=== PATIENT | female | born 1930 | race Caucasian/White ===

== ENCOUNTER → 2016-05-16 | Outpatient (CLI) | payer OTHER, MEDICARE ==
[~2016-05-16] MED LIST: AZITHROMYCIN 2250 MG; BROVANA15 MCG/2 M INH; CALCIUM 500 +1 EAC5 PO; CALCIUM 600 +1 EAC3 PO; CALCIUM 600 MG1 EAC3 PO; CENTRUM SILVER1 EAC3 PO; CENTRUM SILVER1 EAC4 PO; CRESTOR10 MG PO; DOXYCYCLINE 10100 MG PO; ENOXAPARIN40 MG/0.1 SUBQ; EVISTA PO; INCRUSE ELLI62.5 MCG IH; IPRAT-ALBUT 0.5-3 ML INH; LASIX 40 MG TAB40 M1 PO; LEVAQUIN 500 M500 M1 PO; LEVAQUIN 500 M500 M2 PO; LIPITOR 20 MG T20 M1 PO; MUCINEX TA600 MG/TA1 PO; PREDNISONE 20 M20 M1 PO; PREDNISONE 20 M20 MG PO; PROAIR HFA8.5 GM INH; PULMICORT0.5 MG/21 INH; SPIRIVA INH; VITAMIN E400 UNIT PO
== END ==
LOC: RAD 11:24
DX: R06.02 Shortness of breath (principal); J44.9 Chronic obstructive pulmonary disease, unspecified; R06.00 Dyspnea, unspecified

== ENCOUNTER → 2017-01-11 | Outpatient (CLI) | payer OTHER, MEDICARE | LOC: CAT 09:12 | DX: J44.9 Chronic obstructive pulmonary disease, unspecified (principal); R91.1 Solitary pulmonary nodule ==

== ENCOUNTER → 2017-01-19 | Outpatient (CLI) | payer OTHER, MEDICARE | LOC: PET 09:01 | DX: R91.8 Other nonspecific abnormal finding of lung field (principal) ==

== ENCOUNTER → 2017-01-26 | Outpatient (CLI) | payer OTHER, MEDICARE ==
[~2017-01-26] MED LIST changes: +ASPIR 8181 MG PO; +CALCIUM 600 +1 EACH PO; +LASIX 20 MG TAB20 MG PO; +OXYGEN NASAL; +PULMICORT0.25 MG/3 INH; +VENTOLIN HFA 1818 GM INH; +ZPAK PO
== END ==
LOC: RAD 12:10
DX: J18.9 Pneumonia, unspecified organism (principal); J44.9 Chronic obstructive pulmonary disease, unspecified

== ENCOUNTER → 2017-06-19 | Outpatient (CLI) | payer OTHER, MEDICARE ==
[~2017-06-19] MED LIST changes: +CEFUROXIME500 MG PO
== END ==
LOC: CAT 08:33
DX: J43.9 Emphysema, unspecified (principal); R91.1 Solitary pulmonary nodule

== ENCOUNTER → 2017-12-11 | Outpatient (CLI) | payer OTHER, MEDICARE ==
[~2017-12-11] MED LIST changes: -CEFUROXIME500 MG PO
== END ==
LOC: CAT 09:08 → EDSTATUS 14:24
DX: R91.1 Solitary pulmonary nodule (principal); E78.5 Hyperlipidemia, unspecified; J44.9 Chronic obstructive pulmonary disease, unspecified; M81.0 Age-related osteoporosis without current pathological fracture

== ENCOUNTER 2018-01-26 20:37 | Inpatient (IN) | payer OTHER, MEDICARE ==
[~2018-01-26] VITALS: Ht 157.5 cm; Wt 69.1 kg
--- NOTE | ~2018-01-26 | 2DMMODE ---
[facility] [place] [address] 2 D/M-MODE ECHOCARDIOGRAM Name: CHRISTOFER BEARD Room #: 455-P ADM IN M.R.#: [id number] Admission: 01/26/18 Attend Phys: Fadia Lion MD Discharge: Date of : 30 Date of Service: 01/28/18 1419 Report #: [id number] THIS REPORT FOR: //name// APPROVED REPORT Study performed: 01/28/2018 09:09:17 EXAM: Comprehensive 2D, Doppler, and color-flow Echocardiogram Patient Location: Bedside Room #: [facility] Status: routine BSA: 1.70 HR: 101 bpm BP: 128/65 mmHg Rhythm: NSR Other Information Study Quality: Adequate Risk Factors: Cardiac Risk Factors: SOA 2D Dimensions IVC: 22.00 mm Tricuspid Valve TR Peak Rip.: 3.31 m/s RAP Estimate: 10.00 mmHg TR Peak Gr.: 43.70 mmHg PA Pressure: 54.00 mmHg Left Ventricle The left ventricle is normal size. Left ventricular systolic function is normal. LVEF is 55-60%. Right Ventricle The right ventricle is normal size. Atria The left atrium size is normal. The right atrium size is normal. Aortic Valve The aortic valve is normal in structure. No aortic regurgitation is present. [address] [address] [place] [address] 2 D/M-MODE ECHOCARDIOGRAM Name: CHRISTOFER BEARDEN Room #: 455-P ADM IN M.R.#: [id number] Admission: 01/26/18 Attend Phys: Fadia Lion MD Discharge: Date of : 30 Date of Service: 01/28/18 1419 Report #: [id number] Mitral Valve The mitral valve is normal in structure. There is no mitral valve regurgitation noted. Tricuspid Valve The tricuspid valve is normal in structure. Moderate tricuspid regurgitation. Estimated PAP of 54 mmHg. Pulmonic Valve Pulmonic valve is not well visualized. There is no pulmonic valvular regurgitation noted. Great Vessels IVC is dilated and collapses >50% with inspiration. Pericardium There is no pericardial effusion. <Conclusion> The left ventricle is normal size. LVEF is 55-60%. The aortic valve is normal in structure. The mitral valve is normal in structure. The tricuspid valve is normal in structure. Moderate tricuspid regurgitation. Estimated PAP of 54 mmHg. Pulmonic valve is not well visualized. There is no pericardial effusion. <ELECTRONICALLY SIGNED> By: Evert Ghosh MD 01/28/18 1419 1419 1419 Evert Ghosh MD /INF
--- NOTE | ~2018-01-26 | EKG ---
[address] [address] ELECTROCARDIOGRAM REPORT Name: CHRISTOFER BEARD Room #: 455-P ADM IN M.R.#: [id number] Admission: 01/26/18 Attend Phys: Fadia Lion MD Discharge: Date of : 30 Report #: [id number] THIS REPORT FOR: //name// [facility] ED Test Date: 2018-01-26 Test Time: 20:52:39 Pat Name: CHRISTOFER BEARD Department: Room: [facility] Gender: F Bed Spring Maker: JEFF : 1930 Requested By: Jorden Foy Order Number: [id number] MD: Renny Benitez Measurements Intervals [place] Rate: 84 P: 82 GA: 142 QRS: -22 QRSD: 80 T: 45 QT: 360 QTc: 426 Interpretive Statements Sinus rhythm Atrial premature complex Borderline left axis deviation Abnormal R-wave progression, early transition Compared to ECG 07/11/2016 18:37:14 Atrial premature complex(es) now present Electronically Signed On 01-28-2018 17:34:27 CDT by Renny Benitez [email or web address] <ELECTRONICALLY SIGNED> By: Renny Benitez MD 01/28/18 1734 51 51 Renny Benitez MD /EPI
--- NOTE | ~2018-01-26 | HC ---
[facility] [place] [address] CONSULTATION Name: KISHACHRISTOFER CURTISLEEN Room #: 455-P [facility] IN M.R.#: [id number] Admission: 01/26/18 Attend Phys: Fadia Lion MD Discharge: 01/31/18 Date of : 30 Report #: [id number] THIS REPORT FOR: //name// CC: Lei Cevallos PRIMARY PHYSICIAN: Dr. Gabriel Cevallos. REFERRAL PHYSICIAN: Dr. Hoff. REASON FOR REFERRAL: Dyspnea. HISTORY OF PRESENT ILLNESS: The patient is an 87-year-old white female who presents to the Emergency Room with progressive dyspnea. A pulmonary consultation was requested. The patient is known to the pulmonary service. Used to follow longitudinally by Dr. Killian and Dr. Vanegas. She was last seen in the office on 12/27/2017. She has been followed for COPD along with a history of lung cancer and had lung nodules. Review of the records showed that the patient has had a CT chest in the past showing irregular spiculated nodule seen in the left upper lobe, a 7-mm noncalcified nodule in the right upper lobe. The left upper lobe infiltrates felt to be inflammatory. The left upper lobe nodule, unchanged, felt to be benign, but was being followed with serial chest CTs. Baseline spirometry showed FEV1 of 0.82 liter or 55% predicted. FVC measured 1.57 liters, 70% predicted, FEV1/FVC ratio 52% predicted. She was in her usual state of health until for the last few days, she has noticed increasing dyspnea, bronchospasm along with lack of energy. Otherwise, she denies any sore throat, febrile illness. She is also oxygen dependent since 2013. A previous echocardiogram in 2016 was grossly unremarkable with ejection fraction of 55%-60%. PAST MEDICAL HISTORY: Notable for COPD, severe impairment, oxygen dependent at 3 liters of O2, lung cancer 2004, pathologic diagnosis showed neuroendocrine tumor, status post left lower lobe lobectomy, hypertension, dyslipidemia, bilateral cataract surgery. PAST SURGICAL HISTORY: As mentioned above. She has also had appendectomy, cholecystectomy. She has had a partial oophorectomy. ALLERGIES: TO SULFASALAZINE, WHICH CAUSED RASH. SULFA DRUGS, REACTIONS UNSPECIFIED. [address] [address] CONSULTATION Name: CHRISTOFER BEARD FELICITA Room #: 455-P [facility] IN M.R.#: [id number] Admission: 01/26/18 Attend Phys: Fadia Lion MD Discharge: 01/31/18 Date of : 30 Report #: [id number] CURRENT MEDICATIONS: Include Proventil 2 puffs p.r.n., Brovana nebulized b.i.d., Pulmicort nebulized b.i.d., aspirin, calcium supplements, Lasix, multivitamins, Evista, Crestor. FAMILY HISTORY: Notable for heart disease in the mother. Father had a cancer of type unknown. SOCIAL HISTORY: She has smoked for about 40 years, quit in 2004. She drinks socially. REVIEW OF SYSTEMS: As mentioned above, otherwise 10-point system review is negative. PHYSICAL EXAMINATION: GENERAL: She is awake, alert, mildly distressed. VITAL SIGNS: Temperature is 97.6 degrees Fahrenheit, pulse is 60, respiratory rate is 16, blood pressure 94/77 mmHg and saturation 96%. HEENT: Unremarkable. NECK: Supple. CHEST: Breath sounds are fair with mild expiratory wheezes. CARDIOVASCULAR: Normal S1, S2. There are no murmurs or gallop. There is no JVD. There is no carotid bruit. Pulses are 2+/4+ bilaterally. ABDOMEN: Soft, nontender, no organomegaly or masses felt. GENITOURINARY: Deferred. RECTAL: Deferred. EXTREMITIES: There is no edema, cyanosis or clubbing. LABORATORY DATA: Portable chest x-ray shows mild nodular densities in the right lower lobe, chronic interstitial changes are seen in both lung goode, fibrotic changes are seen in the left upper lobe. CT chest from 12/11/[address] shows decrease in size in bilateral lung nodules, no new lung nodules, extensive upper lobe bullous changes. Electrolytes are normal except for creatinine of 1.3. This appears to be new. She had normal creatinine in the past. WBC 11,300, hemoglobin 11.6, platelets are normal. Albumin 2.4. IMPRESSION: 1. Chronic obstructive pulmonary disease exacerbation, severe impairment. 2. Mild increase in focal infiltrates, right lower lobe, question of pneumonia. 3. Acute on chronic hypoxic respiratory failure, she is on 3 liters of O2 at baseline. 4. Remote history of a neuroendocrine tumor status post left lower lobe lobectomy in 2014. 5. History of lung nodules, recent chest CT shows a decrease in size of the lung nodules. There is a stable noncalcified 7-mm nodule seen in the right upper lobe that he has been followed in the outpatient visit following a [facility] [address] [place] [address] CONSULTATION Name: CHRISTOFER BEARD Room #: 455-P DIS IN M.R.#: [id number] Admission: 01/26/18 Attend Phys: Fadia Lion MD Discharge: 01/31/18 Date of : 30 Report #: [id number] pulmonary office. 6. Severe protein-calorie malnutrition, current albumin 2.4. RECOMMENDATION: Agree with general medical treatment plans including corticosteroids, bronchodilators and broad spectrum antibiotics. DVT and GI prophylaxis will be addressed. Thank you for this consultation. <ELECTRONICALLY SIGNED> By: Stanislav Carter MD 02/04/18 1935 1429 1823 Stanislav Carter MD /nt
[2018-01-26 20:53] VITALS: BP 119/63
[2018-01-26 21:24] LABS: HEMATOCRIT 34.1 % (37.0-47.0); HEMOGLOBIN 11.6 gm/dL (12.0-15.0); MCH 30.4 pg (26.0-34.0); MCHC 33.9 g/dL (28.0-37.0); MCV 89.4 fL (80.0-100.0); PLATELET COUNT 162 thou/uL (150-400); RBC 3.82 mil/uL (4.20-5.00); WBC 11.3 thou/uL (4.0-11.0)
[2018-01-26 21:33] LABS: ANION GAP 5 mmol/L (7-16); BUN 34 mg/dL (7-18); CALCIUM 8.9 mg/dL (8.5-10.1); CHLORIDE 101 mmol/L (98-107); CO2 26 mmol/L (21-32); CREATININE 1.3 mg/dL (0.6-1.0); GLUCOSE 107 mg/dL (74-106); POTASSIUM 3.9 mmol/L (3.5-5.1); SODIUM 132 mmol/L (136-145)
[2018-01-26 21:41] LABS: ALBUMIN 2.4 g/dL (3.4-5.0); SGOT 30 U/L (15-37); SGPT 24 U/L (30-65); TOTAL BILIRUBIN 0.7 mg/dL (<0.1-1.0); TOTAL PROTEIN 6.6 g/dL (6.4-8.2); TROPONIN-I <0.06 ng/mL (<0.06)
[2018-01-26 22:01] LABS: ABSOLUTE NEUTROPHILS 10.1 thou/uL (1.4-8.2)
[2018-01-26 22:07] VITALS: BP 119/63
[2018-01-26 22:30] VITALS: BP 99/45
[2018-01-27 04:00] VITALS: BP 115/60
[2018-01-27 05:43] LABS: CALCIUM 8.5 mg/dL (8.5-10.1); CREATININE 1.3 mg/dL (0.6-1.0); POTASSIUM 3.6 mmol/L (3.5-5.1)
[2018-01-27 08:41] VITALS: BP 94/77
[2018-01-27 10:00] LABS: URINE BILIRUBIN NEGATIVE (Negative); URINE BLOOD 1+ (Negative); URINE CLARITY CLEAR; URINE COLOR YELLOW; URINE GLUCOSE-RANDOM* NEGATIVE (Negative); URINE KETONES NEGATIVE (Negative); URINE PROTEIN (DIPSTICK) NEGATIVE (Negative); URINE UROBILINOGEN 0.2 E.U./dl (0.2-1.0)
[2018-01-27 10:03] LABS: URINE LEUKOCYTES-REFLEX 1+ (Negative); URINE NITRITE-REFLEX POSITIVE (Negative)
[2018-01-27 10:13] LABS: CASTS None Seen /LPF (None Seen); CRYSTALS None Seen /LPF (None Seen); SQUAMOUS 0-3 Few /LPF (0-3); URINE RBC 0-2 Rare /HPF (0-2); URINE WBC-REFLEX >25 Many /HPF (0-5); WBC CLUMPS Few (None Seen)
[2018-01-27 16:35] VITALS: BP 107/59
[2018-01-27 19:39] VITALS: BP 116/57
[2018-01-28 04:03] VITALS: BP 113/60
[2018-01-28 04:49] LABS: ABSOLUTE NEUTROPHILS 9.3 thou/uL (1.4-8.2); BASOPHILS 0.2 % (0.0-2.0); HEMATOCRIT 32.9 % (37.0-47.0); HEMOGLOBIN 11.1 gm/dL (12.0-15.0); LYMPHOCYTES 1.9 % (24.0-44.0); MCH 30.3 pg (26.0-34.0); MCHC 33.6 g/dL (28.0-37.0); PLATELET COUNT 176 thou/uL (150-400); POLYS 93.9 % (36.0-66.0); RBC 3.65 mil/uL (4.20-5.00); RDW 14.1 % (10.5-14.5); WBC 9.9 thou/uL (4.0-11.0)
[2018-01-28 04:52] LABS: CALCIUM 9.3 mg/dL (8.5-10.1); CREATININE 1.2 mg/dL (0.6-1.0); POTASSIUM 3.2 mmol/L (3.5-5.1)
[2018-01-28 07:53] VITALS: BP 128/65
[2018-01-28 16:43] VITALS: BP 128/76
[2018-01-28 19:47] VITALS: BP 132/60
[2018-01-29 04:05] VITALS: BP 145/74
[2018-01-29 05:40] LABS: HEMATOCRIT 32.9 % (37.0-47.0); HEMOGLOBIN 11.3 gm/dL (12.0-15.0); MCH 30.7 pg (26.0-34.0); MCHC 34.3 g/dL (28.0-37.0); MCV 89.5 fL (80.0-100.0); RBC 3.68 mil/uL (4.20-5.00); RDW 13.9 % (10.5-14.5); WBC 10.7 thou/uL (4.0-11.0)
[2018-01-29 05:51] LABS: CREATININE 1.2 mg/dL (0.6-1.0)
[2018-01-29 08:00] VITALS: BP 120/74
[2018-01-29 15:48] VITALS: BP 118/66
[2018-01-29 19:43] VITALS: BP 124/64
[2018-01-29 23:07] LABS: ADENOVIRUS Negative (Negative); INFLUENZA A Negative (Negative); INFLUENZA B Negative (Negative); METAPNEUMOVIRUS Negative (Negative); PARAINFLUENZA 1 Negative (Negative); PARAINFLUENZA 2 Negative (Negative); PARAINFLUENZA 3 Negative (Negative); RHINOVIRUS Negative (Negative); RSV A Negative (Negative); RSV B Negative (Negative)
[2018-01-30 03:57] VITALS: BP 131/64
[2018-01-30 08:00] VITALS: BP 126/66
[2018-01-30 13:20] VITALS: BP 126/66
[2018-01-30 15:39] VITALS: BP 120/67
[2018-01-30 19:18] VITALS: BP 135/58
[2018-01-31 05:16] VITALS: BP 141/66
[2018-01-31 08:03] VITALS: BP 121/67
[2018-01-31] MEDS ORDERED: CEFUROXIME500 MG PO ×2 (10:00→11:14)
[2018-01-31] MEDS ORDERED: PREDNISONE 20 M20 M1 PO (10:01)
== END 2018-01-31 12:41 | disposition home health service (06) | DRG 177 ==
LOC: ER 20:37 → 4W 21:41 → EROBS 21:41 → 4W 22:21 → ENTRNSPT 01-31 12:28 → 4W 01-31 12:41
PROVIDERS: Emergency Medicine; Hospitalist; Internal Medicine; Nurse Practitioner Acute Care
DX: J15.6 Pneumonia due to other Gram-negative bacteria (principal); J96.21 Acute and chronic respiratory failure with hypoxia; E43 Unspecified severe protein-calorie malnutrition; N17.9 Acute kidney failure, unspecified; J44.1 Chronic obstructive pulmonary disease with (acute) exacerbation; J44.0 Chronic obstructive pulmonary disease with (acute) lower respiratory infection; N12 Tubulo-interstitial nephritis, not specified as acute or chronic; E78.5 Hyperlipidemia, unspecified; E87.70 Fluid overload, unspecified; M62.84 Sarcopenia; R91.1 Solitary pulmonary nodule; I10 Essential (primary) hypertension; B96.89 Other specified bacterial agents as the cause of diseases classified elsewhere; K59.00 Constipation, unspecified; B96.20 Unspecified Escherichia coli [E. coli] as the cause of diseases classified elsewhere; Z85.118 Personal history of other malignant neoplasm of bronchus and lung; Z90.49 Acquired absence of other specified parts of digestive tract; Z98.42 Cataract extraction status, left eye; Z98.41 Cataract extraction status, right eye; Z88.2 Allergy status to sulfonamides; Z87.891 Personal history of nicotine dependence; Z90.721 Acquired absence of ovaries, unilateral; Z68.27 Body mass index [BMI] 27.0-27.9, adult; Z82.49 Family history of ischemic heart disease and other diseases of the circulatory system; Z80.1 Family history of malignant neoplasm of trachea, bronchus and lung; Z80.42 Family history of malignant neoplasm of prostate; Z99.81 Dependence on supplemental oxygen; Z79.52 Long term (current) use of systemic steroids; Z79.899 Other long term (current) drug therapy
CPT/HCPCS: 10045

== ENCOUNTER → 2018-03-07 | Outpatient (CLI) | payer OTHER, MEDICARE ==
[~2018-03-07] MED LIST changes: +CEFUROXIME500 MG PO
== END ==
LOC: RAD 12:51
DX: J43.9 Emphysema, unspecified (principal); J98.4 Other disorders of lung; M47.814 Spondylosis without myelopathy or radiculopathy, thoracic region; M40.294 Other kyphosis, thoracic region

== ENCOUNTER → 2018-07-22 | Outpatient (CLI) | payer OTHER, MEDICARE | LOC: RAD 10:56 | DX: J44.1 Chronic obstructive pulmonary disease with (acute) exacerbation (principal); I70.0 Atherosclerosis of aorta ==

== ENCOUNTER → 2018-09-05 | Outpatient (CLI) | payer OTHER, MEDICARE | LOC: RAD 10:34 | DX: J43.2 Centrilobular emphysema (principal); R16.1 Splenomegaly, not elsewhere classified; Z88.2 Allergy status to sulfonamides ==

== ENCOUNTER → 2018-12-10 | Outpatient (CLI) | payer OTHER, MEDICARE | LOC: CAT 08:45 | DX: J43.2 Centrilobular emphysema (principal); I25.10 Atherosclerotic heart disease of native coronary artery without angina pectoris; I11.9 Hypertensive heart disease without heart failure; I70.0 Atherosclerosis of aorta; I28.1 Aneurysm of pulmonary artery; J98.4 Other disorders of lung; N28.1 Cyst of kidney, acquired; K86.89 Other specified diseases of pancreas; K86.1 Other chronic pancreatitis; Z90.49 Acquired absence of other specified parts of digestive tract; Z88.2 Allergy status to sulfonamides ==

== ENCOUNTER 2019-01-31 16:54 | Inpatient (IN) | payer OTHER, MEDICARE ==
[~2019-01-31] VITALS: Ht 157.5 cm; Wt 70.6 kg
[2019-01-31 17:13] VITALS: BP 143/62
[2019-01-31 18:29] LABS: BASOPHILS 0.4 % (0.0-2.0); EOSINOPHILS 2.2 % (0.0-3.0); HEMATOCRIT 38.7 % (37.0-47.0); HEMOGLOBIN 12.6 gm/dL (12.0-15.0); LYMPHOCYTES 23.7 % (24.0-44.0); MCH 29.7 pg (26.0-34.0); MCHC 32.5 g/dL (28.0-37.0); MCV 91.4 fL (80.0-100.0); MONOCYTES 7.4 % (1.0-8.0); PLATELET COUNT 234 thou/uL (150-400); POLYS 66.3 % (36.0-66.0); RBC 4.23 mil/uL (4.20-5.00); RDW 14.3 % (10.5-14.5); WBC 7.5 thou/uL (4.0-11.0)
[2019-01-31 18:38] LABS: CREATININE 0.9 mg/dL (0.6-1.0); POTASSIUM 3.7 mmol/L (3.5-5.1)
[2019-01-31 18:44] LABS: ALBUMIN 3.3 g/dL (3.4-5.0); DIRECT BILIRUBIN 0.1 mg/dL (<0.1-0.3); TOTAL BILIRUBIN 0.4 mg/dL (<0.1-1.0); TOTAL PROTEIN 6.8 g/dL (6.4-8.2)
[2019-01-31 19:23] LABS: URINE BILIRUBIN NEGATIVE (Negative); URINE BLOOD 1+ (Negative); URINE CLARITY SL CLOUDY; URINE COLOR YELLOW; URINE GLUCOSE-RANDOM* NEGATIVE (Negative); URINE KETONES TRACE (Negative); URINE LEUKOCYTES 2+ (Negative); URINE NITRITE POSITIVE (Negative); URINE PROTEIN (DIPSTICK) TRACE (Negative); URINE SPECIFIC GRAVITY 1.025 (1.005-1.035); URINE UROBILINOGEN 0.2 E.U./dl (0.2-1.0)
[2019-01-31 19:33] LABS: BACTERIA >30 Many /HPF (None Seen); SQUAMOUS 0-3 Few /LPF (0-3); URINE WBC >25 Many /HPF (0-5)
[2019-01-31 19:34] LABS: CASTS None Seen /LPF (None Seen); CRYSTALS None Seen /LPF (None Seen); URINE RBC 0-2 Rare /HPF (0-2)
[2019-01-31 20:07] VITALS: BP 126/48
[2019-01-31 20:31] VITALS: BP 126/48
[2019-01-31 21:05] VITALS: BP 153/60
[2019-02-01 04:48] VITALS: BP 103/41
--- NOTE | 2019-02-01 04:48 | NUR ---
PT ARRIVED FROM ED AT 2045HRS. PT AOX4 AND HAS A STEADY GAIT. PT WAS ORIENTED TO THE ROOM AND THE UNIT. PT WAS ABLE TO ANSWER ALL ADMISSION RELATED QUESTIONS AND SIGN CONSENTS. 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 ORDERS RECEIVED AND STARTED. PT ON 3L O2 VIA NC AT HOME. PT DENIES ANY PAIN OR [place]. PT STATES THAT SHE ALREADY FEELS BEETER. VSS AND NO S/S OF ACUTE DISTRESS. THE NIGHT PROGRESSED, PT WAS ABLE TO SLEEP PART OF THE SHIFT. PT IS PLEASANT AND COOPERATIVE. WILL CONTINUE TO MONITOR.
[2019-02-01 05:10] LABS: HEMATOCRIT 36.7 % (37.0-47.0); HEMOGLOBIN 12.2 gm/dL (12.0-15.0); MCH 30.4 pg (26.0-34.0); MCHC 33.3 g/dL (28.0-37.0); MCV 91.3 fL (80.0-100.0); RBC 4.02 mil/uL (4.20-5.00); RDW 14.1 % (10.5-14.5)
[2019-02-01 05:30] LABS: ALBUMIN 2.7 g/dL (3.4-5.0); CALCIUM 8.3 mg/dL (8.5-10.1); CREATININE 0.8 mg/dL (0.6-1.0); POTASSIUM 4.3 mmol/L (3.5-5.1); TOTAL BILIRUBIN 0.3 mg/dL (<0.1-1.0); TOTAL PROTEIN 6.2 g/dL (6.4-8.2)
[2019-02-01 08:12] VITALS: BP 119/78
--- NOTE | 2019-02-01 11:32 | EKG ---
[address] [address] ELECTROCARDIOGRAM REPORT Name: CHRISTOFER BEARD EILEEN Room #: 434-P ADM IN M.R.#: [id number] Admission: 01/31/19 Attend Phys: Alejandro Bustos MD Discharge: Date of : 30 Report #: [id number] THIS REPORT FOR: //name// [facility] ED Test Date: 2019-01-31 Test Time: 18:14:24 Pat Name: CHRISTOFER BEARD Department: Room: 434 Gender: F Field Support Engineer: [place] : 1930 Requested By: Raymundo Bustamante Order Number: [id number] MD: Renny Benitez Measurements Intervals [place] Rate: 67 P: 48 TN: 135 QRS: -18 QRSD: 80 T: 51 QT: 419 QTc: 443 Interpretive Statements Sinus rhythm Borderline left axis deviation Compared to ECG 01/26/2018 20:52:39 Atrial premature complex(es) no longer present Electronically Signed On 02-01-2019 11:32:08 CDT by Renny Benitez [email or web address] <ELECTRONICALLY SIGNED> By: Renny Benitez MD 02/01/19 1132 181 181 Renny Benitez MD /EPI
[2019-02-01 13:40] VITALS: BP 123/52
--- NOTE | 2019-02-01 20:05 | NUR ---
PATIENT ALERT AND ORIENTED WITH FAMILY CONSTANTLY AT BEDSIDE DURING THE DAY. PATIENT COOPERATIVE AND PLEASANT WITH POC. PATIENT UP TO BATHROOM WITH SBA WITH OCCASSIONAL WEAKNESS. URINE OUTPUT OF 400 ML AND BLADDER SCAN IMMEDIATELY FOLLOWING WITH 250 RESIDUAL. NO PAIN ISSUES.
[2019-02-01 20:23] VITALS: BP 115/43
--- NOTE | 2019-02-02 04:10 | NUR ---
ASSUMED CARE OF PT @1900. PT A&OX4. PT IS ON 3L OF 02 NC BASELINE. PT USES THE BSC WITH STANDBY ASSIST. PT URINATED 450ML OF URINE. A SPOT CHECK BLADDER SCAN SHOWED 478ML IN PT BLADDER, PT WAS ASKED TO TRY TO URINATE SOME MORE, AND PT HAD 200ML OUT THIS TIME. NO C/O OF PAIN. PT IS GETTING SOLUMEDROL AND NEB TX. V/S STABLE. NO S/S OF DISTRESS. FALL PREC IN PLACE. CALL LIGHT WITHIN REACH. WILL CONT TO MONITOR
[2019-02-02 07:40] VITALS: BP 121/53
[2019-02-02 16:05] VITALS: BP 132/45
--- NOTE | 2019-02-02 18:15 | NUR ---
ALER TO ORIENTED X4. DENIES PAIN. RESPIRATIONS NON LABORED WITH REST. UP WITH STAND BY ASSIST FOR TRANSFERS. SHE INDICATES SHE WILL LIKE TO DISCHARGE HOME IN AM. STATES SHE FEELS MUCH BETTER. WILL CONT WITH PLAN OF CARE.
[2019-02-02 19:06] VITALS: BP 136/61
[2019-02-03 07:19] VITALS: BP 137/78
[2019-02-03] MEDS ORDERED: PREDNISONE 20 M20 M1 PO (09:49)
[2019-02-03] MEDS ORDERED: AUGMENTIN 875-1 EACH PO (09:49)
--- NOTE | 2019-02-03 11:36 | NUR ---
Received awake on bed. Due medications given as prescribed. A+O. With O2 at 3lpm via nasal cannula. With SL at L UA- intact and flushing well. Vital signs stable. Pt keen to go home- a/w discharge orders from physician. Assisted in ADLs. On standby assist; Falls risk- falls bundle in place.
--- NOTE | 2019-02-03 15:22 | NUR ---
PT ADMITTED RELATED TO COPD, UTI. CM REVIEWED CHART AND SPOKE WITH CARE TEAM. CM MET WITH PT AT BEDSIDE THIS DAY PT IS A&OX 4 CM ROLE INTRODUCED. PT INDICATED THAT SHE JUST MOVED INTO INDEPENDENT LIVING APARTMENT AT [facility]. 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 PT INDICATED NO ASSISTIVE DEVICES. PT INDICATED SHE WEARS 3L O2 THROUGH [facility] AND THAT SHE PLANS TO RETURN HOME ONCE MEDICALLY STABLE. PT STATED HE HAD USED [facility] IN THE PAST AND SHE WAS AGREEABLE WITH REFERRAL BEING SENT TO [facility] FOR [facility] THIS TIME. THEY CAN ACCEPT. CARE TEAM INDICATED PT IS MEDICALLY STABLE TO DC HOME THIS DAY WITH PT, OT, NURSING HH SERVICES. NO OTHER CM INTERVENTION INDICATED. CASE CLOSED.
--- NOTE | 2019-02-03 15:26 | NUR ---
DP sent referral to [facility], Lata from [facility] called and said they can accept patient, but can't start her until Sunday. Dp spoke with our ARIE/Candie and she said that was fine, dp called Lata to say Sun. start is fine, dp will send discharge papers and call when they are in.
[2019-02-03 15:32] VITALS: BP 137/78
[2019-02-05 20:08] LABS: ADENOVIRUS Negative (Negative); INFLUENZA A Negative (Negative); INFLUENZA B Negative (Negative); METAPNEUMOVIRUS Negative (Negative); PARAINFLUENZA 1 Negative (Negative); PARAINFLUENZA 2 Negative (Negative); PARAINFLUENZA 3 Negative (Negative); RHINOVIRUS Negative (Negative); RSV A Negative (Negative); RSV B Negative (Negative)
== END 2019-02-03 17:35 | disposition home health service (06) | DRG 189 ==
LOC: ER 16:54 → 4S 19:54 → EROBS 19:54 → 4S 20:26 → 4W 02-03 11:12 → ENTRNSPT 02-03 16:03 → 4W 02-03 17:35
PROVIDERS: Nurse Practitioner; Pediatrics; ADMIT Hospitalist
DX: J96.21 Acute and chronic respiratory failure with hypoxia (principal); N39.0 Urinary tract infection, site not specified; I50.32 Chronic diastolic (congestive) heart failure; J44.1 Chronic obstructive pulmonary disease with (acute) exacerbation; E78.5 Hyperlipidemia, unspecified; I27.20 Pulmonary hypertension, unspecified; I11.0 Hypertensive heart disease with heart failure; Z90.2 Acquired absence of lung [part of]; Z85.118 Personal history of other malignant neoplasm of bronchus and lung; Z90.49 Acquired absence of other specified parts of digestive tract; Z98.42 Cataract extraction status, left eye; Z98.41 Cataract extraction status, right eye; Z79.899 Other long term (current) drug therapy; Z88.2 Allergy status to sulfonamides; Z87.891 Personal history of nicotine dependence; Z87.01 Personal history of pneumonia (recurrent); Z85.43 Personal history of malignant neoplasm of ovary; Z82.49 Family history of ischemic heart disease and other diseases of the circulatory system; Z80.1 Family history of malignant neoplasm of trachea, bronchus and lung; Z80.42 Family history of malignant neoplasm of prostate
CPT/HCPCS: 10195

== ENCOUNTER 2019-05-02 14:19 | Inpatient (IN) | payer OTHER, MEDICARE ==
[~2019-05-02] VITALS: Ht 160 cm; Wt 68.0 kg
[~2019-05-02 14:19] MED LIST changes: +AUGMENTIN 875-1 EACH PO
[2019-05-02 14:20] VITALS: BP 96/40
[2019-05-02 15:32] LABS: ABSOLUTE NEUTROPHILS 9.8 thou/uL (1.4-8.2); BASOPHILS 0.3 % (0.0-2.0); EOSINOPHILS 0.2 % (0.0-3.0); HEMATOCRIT 35.6 % (37.0-47.0); HEMOGLOBIN 11.7 gm/dL (12.0-15.0); LYMPHOCYTES 6.1 % (24.0-44.0); MCHC 32.7 g/dL (28.0-37.0); MCV 91.8 fL (80.0-100.0); MONOCYTES 7.8 % (1.0-8.0); PLATELET COUNT 203 thou/uL (150-400); POLYS 85.6 % (36.0-66.0); RBC 3.88 mil/uL (4.20-5.00); WBC 11.5 thou/uL (4.0-11.0)
[2019-05-02 15:38] LABS: CALCIUM 8.9 mg/dL (8.5-10.1); CREATININE 0.9 mg/dL (0.6-1.0); POTASSIUM 3.6 mmol/L (3.5-5.1)
[2019-05-02 15:46] LABS: ALBUMIN 2.9 g/dL (3.4-5.0); DIRECT BILIRUBIN 0.2 mg/dL (<0.1-0.2); TOTAL BILIRUBIN 0.8 mg/dL (<0.1-1.0); TOTAL PROTEIN 6.3 g/dL (6.4-8.2)
[2019-05-02 17:22] LABS: URINE BILIRUBIN NEGATIVE (Negative); URINE BLOOD 1+ (Negative); URINE CLARITY CLOUDY; URINE COLOR YELLOW; URINE GLUCOSE-RANDOM* NEGATIVE (Negative); URINE KETONES NEGATIVE (Negative); URINE PROTEIN (DIPSTICK) TRACE (Negative); URINE UROBILINOGEN 0.2 E.U./dl (0.2-1.0)
[2019-05-02 17:23] LABS: URINE LEUKOCYTES-REFLEX 3+ (Negative); URINE NITRITE-REFLEX POSITIVE (Negative)
[2019-05-02 17:27] LABS: SQUAMOUS >10 Many /LPF (0-3)
[2019-05-02 17:28] LABS: BACTERIA-REFLEX >30 Many /HPF (None Seen); CASTS None Seen /LPF (None Seen); CRYSTALS None Seen /LPF (None Seen); MUCUS 0-3 Light strn/LPF (None Seen); URINE WBC-REFLEX >25 Many /HPF (0-5)
[2019-05-02 17:30] LABS: URINE RBC 3-10 Few /HPF (0-2)
--- NOTE | 2019-05-02 18:42 | NUR ---
KYA BEARD (SON) - PLEASE CALL WHEN MOVED TO FLOOR [phone]
[2019-05-02 19:49] VITALS: BP 114/57
--- NOTE | 2019-05-02 20:00 | NUR ---
CALLED PT'S SON WITH ROOM NUMBER FOR PT.
[2019-05-02 20:52] VITALS: BP 120/51
[2019-05-02] MEDS ORDERED: ASPIR 8181 M1 PO (22:35)
[2019-05-02] MEDS ORDERED: KLOR-CON M2020 MEQ PO (22:37)
[2019-05-03 00:12] VITALS: BP 102/60
[2019-05-03 03:22] VITALS: BP 110/45
[2019-05-03 04:09] LABS: ALBUMIN 2.6 g/dL (3.4-5.0); CALCIUM 8.5 mg/dL (8.5-10.1); CREATININE 0.9 mg/dL (0.6-1.0); PHOSPHORUS 3.1 mg/dL (2.5-4.9); POTASSIUM 3.8 mmol/L (3.5-5.1); TOTAL BILIRUBIN 0.4 mg/dL (<0.1-1.0); TOTAL PROTEIN 6.2 g/dL (6.4-8.2)
[2019-05-03 04:21] LABS: BASOPHILS 0.1 % (0.0-2.0); HEMOGLOBIN 11.7 gm/dL (12.0-15.0); MCH 30.3 pg (26.0-34.0); MCHC 32.4 g/dL (28.0-37.0); MCV 93.3 fL (80.0-100.0); MONOCYTES 1.6 % (1.0-8.0); PLATELET COUNT 193 thou/uL (150-400); POLYS 95.3 % (36.0-66.0); RBC 3.86 mil/uL (4.20-5.00); RDW 14.1 % (10.5-14.5); WBC 12.5 thou/uL (4.0-11.0)
--- NOTE | 2019-05-03 04:26 | NUR ---
PT ARRIVED TO UNIT APPROX 2100; ADMISSION AND ASSESSMENT COMPLETED, CONSENTS SIGNED. PT A&Ox4, FALL PREC IN PLACE, O2 ON AT 3L. PT REPORTS GENERAL WEAKNESS AND FATIGUE WITH SOA THAT HAS LASTED ABOUT A WEEK; BECOMES VERY SOB WITH ANY ACTIVITY. ACCUCHECKS FOR STEROIDS. SKIN INTACT. DENIES PAIN OR NAUSEA. HAS BEEN SA TO SR W/PVC'S AND HR IN 70-80'S ON TELE. NO OTHER CONCERNS, WILL CONTINUE TO MONITOR.
[2019-05-03 07:46] VITALS: BP 116/47
[2019-05-03 15:46] VITALS: BP 99/45
--- NOTE | 2019-05-03 17:39 | NUR ---
PT ON 3L PER HOME SCHEDULE...LUNGS COARSE NONPRODUCTIVE...SWABBED FOR RSV TODAY PENDING...
[2019-05-03 19:03] VITALS: BP 111/51
[2019-05-04 03:40] VITALS: BP 114/53
[2019-05-04 05:35] LABS: HEMATOCRIT 35.1 % (37.0-47.0); HEMOGLOBIN 11.6 gm/dL (12.0-15.0); MCH 30.5 pg (26.0-34.0); MCV 92.2 fL (80.0-100.0); RBC 3.8 mil/uL (4.20-5.00); RDW 14.1 % (10.5-14.5); WBC 9.9 thou/uL (4.0-11.0)
[2019-05-04 05:52] LABS: CALCIUM 9.2 mg/dL (8.5-10.1); POTASSIUM 4.2 mmol/L (3.5-5.1)
--- NOTE | 2019-05-04 06:16 | NUR ---
ASSUMED CARE AT 1900. PT REPORTS SLIGHT IMPROVEMENT IN BREATHING, STILL HAS SOME WHEEZING ON THE LEFT WITH CRACKLES IN THE RIGHT BASE. REPORTS SHE STILL BECOMES SOB EASILY WITH ANY ACTIVITY. DENIES PAIN OR NAUSEA. CALLS APPROPRIATELY FOR ASSISTANCE TO BSC. NO OTHER CONCERNS, WILL CONTINUE TO MONITOR.
[2019-05-04 07:38] VITALS: BP 124/57
[2019-05-04 15:38] VITALS: BP 94/51
--- NOTE | 2019-05-04 19:25 | NUR ---
PT REPORTS FEELING 50% BETTER TODAY...HOPEFULLY D/C TOMORROW OR TUES...CONTINUES ON ANTIBIOTICS AND STEROIDS...
[2019-05-04 19:46] VITALS: BP 112/59
--- NOTE | 2019-05-04 23:22 | NUR ---
REPORT CALLED TO 4 WEST. PT TO MOVE TO ROOM 460. PT IS CONCERNED HOW SHE CAN TAKE HER LASIX AND GWT TO TO HER EXERCISE CLASSES AT THE LIVING FACILITY SHE LIVES AT. INCONTITENCE IS AN ISSUE. I TALKED TO HER ABOUT WEARING A PIOSE BRIEF AND ALWAYS WIPING FRONT TO BACK AND USING BABY WIPES. SHE IS AGREEABLE TO MOVING TO THE UNIT ON 4W WHICH IS [facility] TELE
[2019-05-04 23:40] VITALS: BP 124/62
--- NOTE | 2019-05-05 00:12 | NUR ---
PATIENT TRANSFERED FROM ROOM 355 VIA BED WITH NURSE AND ROCKET TEST FIRE WORKER AT 2330. ALERT AND ORIENTED X4. 02NC 3L. NO SOA NOTED. RESTING QUIETLY. WILL MONITOR. DENIES PAIN.
[2019-05-05 08:37] VITALS: BP 121/70
[2019-05-05 14:20] VITALS: BP 115/47
--- NOTE | 2019-05-05 15:06 | NUR ---
PT A&OX4, VSS, DENIES PAIN. PT ON 3L O2, LUNGS DIMINISHED, NON PRODUCTIVE LOOSE COOUGH. NO SIGNS OF DISTRESS. WILL CONTINUE TO MONITOR.
--- NOTE | 2019-05-05 17:26 | NUR ---
PT ADMITTED RELATED TO SOA. CM REVIEWED CHART AND SPOKE WITH CARE TEAM. CM MET WITH PT AT BEDSIDE THIS DAY. PT IS A&O X4. CM ROLE INTRODUCED. PT INDICATED [place]IV[place] IN [place] AT [facility]. 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 PT INDICATED FACILITY PROVIDES MEALS. 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 PT INDICATED SHE HAD BEEN TO [facility] IN THAT PAST AND HAD [facility]. PT INDICATED SHE HOPES TO BE ABLE TO RETURN HOME WITH HH IF POSSIBLE ONCE MEDICALLY STABLE. CM TO FOLLOW INDICATED WITH DC PLANNING.
[2019-05-05 20:27] VITALS: BP 114/50
--- NOTE | 2019-05-06 04:03 | NUR ---
PT CARE ASSUME WITH PT IN BED WATCHING TV AR 1900.PT IS A/O X4.PT IS UP WITH ASSIST.PT IS ON OXYGEN 3L /NC.PT IS ACCUCHECK ACHS.PT IV ACCESS ON RFA /SL.PT DENIED PAIN .PT DENIED N/V.WILL CONTINUE POC TILL EOS
[2019-05-06 08:42] VITALS: BP 129/62
--- NOTE | 2019-05-06 10:13 | NUR ---
DISCHARGE PLANNING. POSSIBLE DISCHARGE TODAY. HOME HEALTH RECOMMENDED. PATIENT REFERRAL FAXED TO [facility] PER REQUEST. CALL PLACED TO INTAKE TO NOTIFY. AWAITING RESPONSE. FOLLOWING.
[2019-05-06 14:46] VITALS: BP 143/78
--- NOTE | 2019-05-06 15:16 | NUR ---
IT IS ANTICPATED THAT PT WILL BE MEDICALLY STABLE TO DC HOME TO [facility] TOMORROW Sunday05/07/19. [facility]FERRAL SENT TO [facility]. ORDERS WILL NEED TO BE SENT TO FAX: . IF PT NEEDS [facility] HOME CALL [facility] AT .
--- NOTE | 2019-05-06 18:41 | NUR ---
PATIENT STATES SHE HAS SIGNIFICANTLY IMPROVED TODAY. STATES SHE FEELS LIKE SHE CAN GO HOME AND BE OK. CONT ON IV ABT AND NO ADVERSE EFFECTS NOTED. PLEASANT WITH CARE. WILL CONT WITH PLAN OF CARE.
[2019-05-06 19:20] VITALS: BP 125/74
--- NOTE | 2019-05-07 05:43 | NUR ---
Pt. rested quietly at intervals during the night when checked on during frequent rounds. She offers no c/o pain and no c/o shortness of air. Up to the bedside comode with assistance of one. Bed alarm is on.
[2019-05-07 07:40] VITALS: BP 141/70
[2019-05-07 15:10] LABS: ADENOVIRUS Negative (Negative); INFLUENZA A Negative (Negative); INFLUENZA B Negative (Negative); METAPNEUMOVIRUS Negative (Negative); PARAINFLUENZA 1 Negative (Negative); PARAINFLUENZA 2 Negative (Negative); PARAINFLUENZA 3 Negative (Negative); RHINOVIRUS Positive (Negative); RSV A Negative (Negative); RSV B Negative (Negative)
[2019-05-07 15:35] VITALS: BP 106/60
--- NOTE | 2019-05-07 19:35 | NUR ---
Assumed pt care this am, VS have been stable. No signs or verbalizations of distress have been noted. 3L of O2 via NC maintained , diet and medication well tolerated. POC followed.
[2019-05-07 20:00] VITALS: BP 116/55
--- NOTE | 2019-05-08 05:50 | NUR ---
Pt. rested quietly at intervals during the night when checked on during frequent rounds. She offers no c/o increased shortness of air and continues on O2 at 3 liters per nasal canula. Up to the bathroom with stand by assistance. Bed alarm is on.
[2019-05-08 07:45] VITALS: BP 127/62
[2019-05-08] MEDS ORDERED: RAYOS5 MG PO (12:27)
[2019-05-08 13:00] VITALS: BP 127/62
[2019-05-08 14:03] VITALS: BP 113/60
--- NOTE | 2019-05-08 14:06 | NUR ---
Assumed pt care this am, VS stable still on 3 L of O2 via NC. Pt stayed on her recliner for most of the day. Diet and medications are well tolerated. NO signs or verbalizatons of distress have been noted. POC followed, DC instructons given to the pt, prescriptions sent to the pharmacy. Awaiting son to pick py up. IV removed
--- NOTE | 2019-05-08 15:13 | NUR ---
CARE TEAM INDICATED THAT PT IS MEDICALLY STABLE TO DC HOME TO [facility] THIS DAY. PT IS TO HAVE [facility] FOR NURSING. ORDERS FAXED. PT'S FAMILY IS TO PROVIDE TRANSPORT HOME THIS AFTERNOON. NO OTHER CM INTERVENTION INDICATED. CASE CLOSED.
== END 2019-05-08 16:45 | disposition home health service (06) | DRG 871 ==
LOC: ER 14:19 → 4W 17:57 → EROBS 17:57 → 3W 21:01 → 4W 05-04 23:29 → ENTRNSPT 05-08 16:10 → 4W 05-08 16:45
PROVIDERS: Emergency Medicine; Internal Medicine Pulmonary Disease; ADMIT Internal Medicine
DX: A41.9 Sepsis, unspecified organism (principal); J96.21 Acute and chronic respiratory failure with hypoxia; J18.9 Pneumonia, unspecified organism; J44.1 Chronic obstructive pulmonary disease with (acute) exacerbation; N39.0 Urinary tract infection, site not specified; J44.0 Chronic obstructive pulmonary disease with (acute) lower respiratory infection; I25.10 Atherosclerotic heart disease of native coronary artery without angina pectoris; Z60.2 Problems related to living alone; B96.20 Unspecified Escherichia coli [E. coli] as the cause of diseases classified elsewhere; I10 Essential (primary) hypertension; E78.5 Hyperlipidemia, unspecified; Z90.49 Acquired absence of other specified parts of digestive tract; Z98.42 Cataract extraction status, left eye; Z98.41 Cataract extraction status, right eye; Z85.118 Personal history of other malignant neoplasm of bronchus and lung; Z88.2 Allergy status to sulfonamides; Z87.891 Personal history of nicotine dependence; Z82.49 Family history of ischemic heart disease and other diseases of the circulatory system; Z80.42 Family history of malignant neoplasm of prostate; Z99.81 Dependence on supplemental oxygen
CPT/HCPCS: 10040; 10045; 10879

== ENCOUNTER 2019-05-15 05:24 | Inpatient (IN) | payer OTHER, MEDICARE ==
[~2019-05-15] VITALS: Ht 160 cm; Wt 66.3 kg
[~2019-05-15 05:24] MED LIST changes: +ASPIR 8181 M1 PO; +KLOR-CON M2020 MEQ PO; +RAYOS5 MG PO
[2019-05-15 07:16] LABS: BE(vivo) 3.1 mmol/L (-2 to +3); PCO2 48.6 mmHg (35.0-45.0); PO2 108.8 mmHg (80.0-100.0); pH 7.394 (7.360-7.450); sO2 97.9 % (92.0-98.0)
[2019-05-15 08:28] LABS: ABSOLUTE NEUTROPHILS 8.2 thou/uL (1.4-8.2); BASOPHILS 0.2 % (0.0-2.0); HEMATOCRIT 36.7 % (37.0-47.0); HEMOGLOBIN 12.1 gm/dL (12.0-15.0); LYMPHOCYTES 4.8 % (24.0-44.0); MCH 30.1 pg (26.0-34.0); MCV 91.1 fL (80.0-100.0); MONOCYTES 6.6 % (1.0-8.0); PLATELET COUNT 191 thou/uL (150-400); POLYS 88.4 % (36.0-66.0); RBC 4.02 mil/uL (4.20-5.00); RDW 13.5 % (10.5-14.5); WBC 9.3 thou/uL (4.0-11.0)
[2019-05-15 08:43] LABS: ANION GAP 4 mmol/L (7-16); BUN 28 mg/dL (7-18); CALCIUM 8.7 mg/dL (8.5-10.1); CHLORIDE 100 mmol/L (98-107); CO2 35 mmol/L (21-32); GLUCOSE 95 mg/dL (74-106); POTASSIUM 3.3 mmol/L (3.5-5.1); SODIUM 139 mmol/L (136-145)
[2019-05-15 08:46] LABS: DIRECT BILIRUBIN 0.1 mg/dL (<0.1-0.2); MAGNESIUM 2.1 mg/dL (1.8-2.4); TOTAL BILIRUBIN 0.3 mg/dL (<0.1-1.0); TOTAL PROTEIN 6.1 g/dL (6.4-8.2)
[2019-05-15 08:53] LABS: TROPONIN-I <0.06 ng/mL (<0.06)
--- NOTE | 2019-05-15 08:58 | EKG ---
[address] [address] [facility] [place] [address] ELECTROCARDIOGRAM REPORT Name: CHRISTOFER BEARD Room #: [facility]#: [id number] Admission: 05/15/19 Attend Phys: Discharge: Date of : 30 Report #: [id number] THIS REPORT FOR: //name// [facility] ED Test Date: 2019-05-15 Test Time: 05:37:50 Pat Name: CHRISTOFER BEARD Department: Room: Gender: F Sales Leader: GABBY INGRAM : 1930 Requested By: Eliseo Victoria Order Number: [id number] MD: Suhail Anthony Measurements Intervals [place] Rate: 96 P: 84 GA: 142 QRS: -37 QRSD: 84 T: 58 QT: 362 QTc: 458 Interpretive Statements Sinus rhythm Left axis deviation Abnormal R-wave progression, early transition Compared to ECG 01/31/2019 18:14:24 No significant changes Electronically Signed On 05-15-2019 8:57:37 ANIMATED CARTOONS PAINTER by Suhail Anthony [email or web address] <ELECTRONICALLY SIGNED> By: Suhail Anthony MD, [facility] 05/15/19 0857 6 Suhail Anthony MD, [facility] /EPI
[2019-05-15 09:57] VITALS: BP 126/69
[2019-05-15 10:03] VITALS: BP 126/69
[2019-05-15 10:39] VITALS: BP 113/47
--- NOTE | 2019-05-15 13:10 | NUR ---
PT ARRIVED AT 1100 FROM THE ED. ALERT AND ORIENTED*4. DENIES PAIN. LS CONGESTED AND WHEEZING, ON 4L O2 WITH SATS >95%. SOA NOTED WITH EXERCION. VITALS STABLE. SKIN DRY AND INTACT. IV ON RIGHT AC REMAINS INTACT AND PATENT. PT UP WITH 1 ASSIST AND TOLERATED WELL. Q1H VISUAL CHECKS. CALL LIGHT WITHIN REACH. FALL PRECAUTIONS IN PLACE
[2019-05-15 15:41] VITALS: BP 114/64
--- NOTE | 2019-05-15 16:23 | NUR ---
PT ADMITTED RELATED TO COPD, O2 DEPENDENT, CAP. CM REVIEWED CHART AND SPOKE WITH CARE TEAM. CM FAMILIAR WITH PT FROM PREVIOUS ADMISSION. CM ATTEMPTED TO VISIT WITH PT THIS AFTERNOON BUT PT'S LIGHT WAS OFF AND SHE WAS SLEEPING. CM CALLED PT'S DTR FE NUÑEZ SHE INIDCATED CONFIMRED THAT PT RESIDES AT [facility] IN INDEPENDENT LIVING. 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 PT HAD DISHCARGED HOME LAST MONDAY 05/[address] [facility]. DTR INDICATED THAT PT HAD BEEN SENT HOME WITH A SCRIPT FOR PREDNISONE (REYOS) WHICH COST $3000.00 PT COULDN'T AFFORD TO FILL IT. DTR HAD CALLED HOSPITALIST OFFICE AND DONALD HAD WRITTEN NEW SCRIPT BUT PT HADN'T GOTTEN IT FILLED UNTIL JUST TWO DAYS AGO. DTR INDICATED THAT THEY WOULD HOPE THAT PT WOULD BE ABLE TO RETURN TO [place] APARTMENT ONCE MEDICALLY STABLE. CM TO FOLLOW INDICATED WITH DC PLANNING.
[2019-05-15 19:48] VITALS: BP 128/57
--- NOTE | 2019-05-16 02:03 | NUR ---
PATIENT AOX4 MAKES NEEDS KNOWN. PATIENT HAS WHEEZES AND COARSE THROUGHOUT THE CHEST. BREATHING TREATMENT GIVEN, O2 SAT WAS >95%. PATIENT ON 4L OXYGEN. PATIENT BLOOD SUGAR WAS 207, 4 UNIT OF HUMALOG GIVE. CALL LIGHT AND PERSONAL ITEM WITHIN REACH. FALL PRECAUTION IN PLACE. PATIENT IN BED ASLEEP AT THIS TIME BREATHING REGULAR AND UNLABOURED.
[2019-05-16 06:11] LABS: ABSOLUTE NEUTROPHILS 4.5 thou/uL (1.4-8.2); HEMOGLOBIN 11.6 gm/dL (12.0-15.0); LYMPHOCYTES 5.1 % (24.0-44.0); MCH 29.9 pg (26.0-34.0); MCHC 32.2 g/dL (28.0-37.0); MONOCYTES 4.1 % (1.0-8.0); PLATELET COUNT 187 thou/uL (150-400); POLYS 90.8 % (36.0-66.0); RBC 3.87 mil/uL (4.20-5.00)
[2019-05-16 06:25] LABS: CALCIUM 8.6 mg/dL (8.5-10.1); CREATININE 0.8 mg/dL (0.6-1.0); MAGNESIUM 2.4 mg/dL (1.8-2.4); POTASSIUM 4.2 mmol/L (3.5-5.1)
[2019-05-16 08:00] VITALS: BP 137/60
--- NOTE | 2019-05-16 13:03 | NUR ---
CARE TEAM INDICATED THAT PT WILL LIKELY BE HERE OVER THE WEEKEND. THERAPY INDICATED THAT PT WILL MOST LIKELY BE SAFE [place] WITH RESUMPTION OF HH SERVICES ONCE MEDICALLY STABLE. CM TO FOLLOW INDICATED WITH DC PLANNING.
--- NOTE | 2019-05-16 14:59 | NUR ---
DISCHARGE PLANNING. HOME HEALTH RECOMMENDED AT DISCHARGE. PATIENT IS CURRENT WITH [facility], VERIFIED WITH JOHN [facility]UL, INTAKE FOR [facility] TO FACILITATE ONCE RESUMPTION OF HH ORDERS RECEIVED. FOLLOWING.
[2019-05-16 15:00] VITALS: BP 139/42
[2019-05-16 15:03] VITALS: BP 137/60
--- NOTE | 2019-05-16 16:16 | NUR ---
Assumed patient care at 0715. Vital signs have been stable. Patient is up x's 1 assist. She is alert and oriented x's 4. Lung sounds continue as coarse with wheezes noted in all goode. She has been on Oxygen at 3.5 Liters per nasal cannula (as adjusted per RT). Blood sugar 106 at 0725, 171 at 1200 (she recieved 3 units of Lispro as ordered per Sliding Scale). New IV placed in left wrist, as IV in right anticubital space infiltrated. No adverse effects related to IV Antibiotic Therapy. POC followed. Will continue to monitor.
[2019-05-16 19:04] VITALS: BP 138/48
--- NOTE | 2019-05-17 00:48 | NUR ---
PATIENT AOX4 MAKES NEEDS KNOWN. PATIENT HAS WHEEZES AND LUNGS ARE COARSE. PATIENT DENIED COUGHING THIS SHIFT. PATIENT DENIED PAIN OR DISCOMFORT. NO SHORTNESS OF AIR OR DISTRESS NOTED THIS SHIFT. FALL PRECAUTION IN PLACE. CALL LIGHT AND PERSONAL ITEM WITHIN REACH.PATIENT IN BED ASLEEP AT THIS TIME BREATHING REGULAR AND UNLABOURED.
[2019-05-17 05:03] LABS: HEMATOCRIT 36.6 % (37.0-47.0); HEMOGLOBIN 11.7 gm/dL (12.0-15.0); MCH 29.7 pg (26.0-34.0); MCHC 31.9 g/dL (28.0-37.0); RBC 3.94 mil/uL (4.20-5.00); RDW 13.8 % (10.5-14.5); WBC 9.2 thou/uL (4.0-11.0)
[2019-05-17 05:17] LABS: CALCIUM 8.8 mg/dL (8.5-10.1); CREATININE 0.9 mg/dL (0.6-1.0); POTASSIUM 3.8 mmol/L (3.5-5.1)
[2019-05-17 07:23] VITALS: BP 141/64
--- NOTE | 2019-05-17 15:50 | NUR ---
Assumed patient care at 0715. Patient's vital signs continue as stable. Patient continues to have SOA upon exertion; lung sounds are coarse with wheezing noted in all goode. Patient had a small bowel movement today. Appetite is fair; she usually consumes about 50% of all meals. Patient is stand-by assist with transfers. She has voiced no complaints of pain. Will continue to monitor.
[2019-05-17 15:58] VITALS: BP 117/60
[2019-05-17 19:22] VITALS: BP 130/66
--- NOTE | 2019-05-18 04:16 | NUR ---
ASSUMED CARE AROUND 1914. AXOX4. STB ASSIST WHEN NEEDED. CALLS APPROPIRATELY FOR ASSISTANCE. NO S/S ACUTE DISTRESS NOTED OR REPORTED AT THIS TIME. WILL CONT TO MONITOR FOR ANY CHANGES IN CONDITION.
[2019-05-18 08:00] VITALS: BP 114/53
--- NOTE | 2019-05-18 10:30 | NUR ---
Received awake on bed. Due medications given as prescribed, able to swallow meds w/o difficulty. A+Ox4. With O2 at 3lpm via nasal cannula, still with audible wheezes and coarse breath sounds. On blood sugar monitoring with sliding scale insulin- pt on IV steroids. With SL at L wrist- on IV antibiotics. Assisted in ADLs, able to use bedside commode with minimum to standby assist. On regular diet- tolerating well; no nausea, no vomiting and no abdominal pain. On regular breathing treatments.
--- NOTE | 2019-05-18 17:53 | NUR ---
ASSUMED CARE OF PT AROUND 1500. PT WAS A TRANSFER FROM [facility]. PT IS ALERT AND ORIENTED TIMES FOUR. VSS. PT DENIES PAIN. PT UP WITH STAND BY ASSSIT. PT TOLERATES DINNER. WILL CONTINUE TO MONITOR.
[2019-05-18 19:23] VITALS: BP 122/67
[2019-05-19 05:39] LABS: ABSOLUTE NEUTROPHILS 6.8 thou/uL (1.4-8.2); BASOPHILS 0.1 % (0.0-2.0); HEMATOCRIT 38.5 % (37.0-47.0); HEMOGLOBIN 12.4 gm/dL (12.0-15.0); LYMPHOCYTES 7.5 % (24.0-44.0); MCH 29.6 pg (26.0-34.0); MCHC 32.2 g/dL (28.0-37.0); MONOCYTES 4.1 % (1.0-8.0); PLATELET COUNT 233 thou/uL (150-400); POLYS 88.3 % (36.0-66.0); RBC 4.19 mil/uL (4.20-5.00); RDW 13.7 % (10.5-14.5); WBC 7.7 thou/uL (4.0-11.0)
[2019-05-19 06:08] LABS: ALBUMIN 2.4 g/dL (3.4-5.0); CREATININE 0.9 mg/dL (0.6-1.0); MAGNESIUM 2.2 mg/dL (1.8-2.4); POTASSIUM 3.7 mmol/L (3.5-5.1); TOTAL BILIRUBIN 0.3 mg/dL (<0.1-1.0); TOTAL PROTEIN 6.1 g/dL (6.4-8.2)
[2019-05-19 07:13] VITALS: BP 149/77
--- NOTE | 2019-05-19 10:19 | NUR ---
ASSUMED CARE AT 0700, PT AOX4, NO C/O PAIN, VSS. PT IS UP TO BSC, AMBULATES WITH SB ASSIST. PT TOLERATES DIET WELL, CONT. 3L O2. PT HAS NON PRODUCTIVE COUGH, L WRIST IV-SL. CALL LIGHT/PERSONAL ITEMS IN REACH, HOURLY ROUNDS COMPLETED. WILL CONTINUE TO MONITOR PT.
--- NOTE | 2019-05-19 10:36 | NUR ---
SW reviewed chart and spoke with nursing and attending physician. Pt was transferred to [facility] from and is slowly progressing towards goals for discharge. SW met with pt at bedside to discuss discharge plan. Pt states she needs to see how her endurance is prior to discharge. Pt states she will need to be able to walk to and from the dining room, but could have meals delivered to her room if needed. Pt would like to go to [facility] if post-acute is needed. SW contacted liaison with [facility] to check bed availability. Pt is currently on service with [facility] . They can resume services. SW is following to assist as needed with discharge planning.
[2019-05-19 14:00] VITALS: BP 112/65
--- NOTE | 2019-05-20 06:20 | NUR ---
Assumed pt care at 1900. Pt is A/OX4,very pleasant. Hard of hearing,up ad naveen w/o problems. VSS. Denies pain on assessment. Continent of B&B. Does have a productive cough with white phlegm occasional dyspnea on exertion. Pt encouraged to call for help as needed for help. Resting quietly at this time with no distress noted,oxygen on @ 3L/NC. Will continue to monitor pt.
[2019-05-20 07:51] VITALS: BP 141/73
[2019-05-20] MEDS ORDERED: LEVAQUIN 500 M500 M2 PO (09:47)
[2019-05-20] MEDS ORDERED: IPRAT-ALBUT 0.5-3 ML INH (09:47)
[2019-05-20] MEDS ORDERED: ACIDOPHILUS1 EAC4 PO (09:48)
[2019-05-20] MEDS ORDERED: PANTOPRAZOLE SO40 M1 PO (09:48)
--- NOTE | 2019-05-20 09:59 | NUR ---
SW reviewed chart and spoke with nursing and attending physician. Pt is progressing towards goals for discharge. Discharge to [facility] is anticipated for tomorrow. SW discussed with [facility] liaison, who confirms they are able to accept pt tomorrow. [facility] is following to assist as needed with discharge planning.
[2019-05-20 18:51] VITALS: BP 129/82
--- NOTE | 2019-05-20 19:41 | NUR ---
ASSUMED CARE OF PATIENT AT 0715, PATIENT ALERT AND ORIENTED X 4. UP WITH SBA, BUT UP AD NESSA IN HER ROOM. O2 AT 3 LITERS/NC. LUNGS WHEEZY, COUGH STILL NOTED. BREATHING TREATMENTS SCHEDULED. BLOOD SUGAR MONITORING ORDERED DUE TO IV STEROIDS. LEFT WRIST IV IN PLACE, RECEIVED 1 IV ANTIBIOTIC THIS SHIFT. POSSIBLE DISCHARGE TOMORROW. PATIENT IS [facility]. PATIENT C/O SMALL AREA AT VAGINA, WILL ADDRESS WITH THE DOCTOR.
[2019-05-20 20:40] VITALS: BP 119/60
--- NOTE | 2019-05-21 04:49 | NUR ---
Assumed pt care at 1900. Pt A/OX4,AK CHIN makes needs known appropriately. Up ad naveen w/o difficulties. Denies pain on assessment. Pt has bursted blister area on her labia majora (right side) area red and sore to touch, pt declined need to contact [employer] for any cream stating it already felt improved after applying moisture barrier earlier. Reported it has been there for a couple weeks she just never bothered looking at it;reported she was using poise pads in underwear then and possibly that's how it happened. Pt educated on moisture retention in the area could possibly lead to that and she should try and keep herself dry. However, she does have stress incontinence especially w/coughing. Verbalized understanding. Encouraged to call for assisitance as needed. Resting quietly with no distress noted;oxygen on @ 3L/NC call light/personal items within reach.
[2019-05-21 09:43] VITALS: BP 124/61
--- NOTE | 2019-05-21 13:23 | NUR ---
DISCHARGE NOTE: SW reviewed chart and spoke with nursing and attending physician. Pt is medically stable for discharge to [facility] today. operations planner faxed finalized discharge orders/summary to the SNF. Wheelchair van transportation scheduled for 1400 per facility's arrangements. SW met with pt at bedside to provide update and notify of discharge. Pt is aware and agreeable with discharge plan. SW offered to notify pt's family. Pt states she will notify her family. Chart copy requested. Nursing provided with number to call report. No additional SW needs identified at this time, but is available to assist should needs arise.
--- NOTE | 2019-05-21 15:02 | NUR ---
ASSUMED CARE OF PATIENT AT 0715, PATIENT ALERT AND ORIENTED X 4. UP AD NESSA IN HER ROOM, SBA WITH OXYGEN AT 3 LITERS/NC. PATIENT DENIES PAIN THIS AM. PATIENT HAS LEFT FOREARM IV IN PLACE, RECEIVED IV ANTIBIOTIC THIS AM. PATIENT CONTINUES WITH CONGESTED COUGH, LUNGS COARSE AND DIMINSHED, RECEIVING BREATHING TREATMENTS SCHEDULED. THIS RN NOTIFIED DR CORDON OF REDDENED AREA ON RIGHT SIDE OF LABIA. ORDERED TRIPLE ANTIBIOTIC. BLOOD SUGAR MONITORING ORDERED DUE TO IV STEROIDS. LAST BLOOD SUGAR 117, NO INSULIN GIVEN. PATIENT DISCHARGED TO [facility], REPORT GIVEN TO NABEEL/NATALY. ALL PERSONAL BELONGINGS AND ALL DISCHARGE PAPERWORK SENT WITH THE PATIENT.
== END 2019-05-21 15:10 | DRG 193 ==
LOC: ER 05:24 → 4N 09:49 → EROBS 09:49 → 4W 09:49 → 4N 05-18 15:30
PROVIDERS: Emergency Medicine; Internal Medicine; Nurse Practitioner; Pediatrics; ADMIT Hospitalist
DX: J18.9 Pneumonia, unspecified organism (principal); J96.22 Acute and chronic respiratory failure with hypercapnia; J44.1 Chronic obstructive pulmonary disease with (acute) exacerbation; E44.0 Moderate protein-calorie malnutrition; J44.0 Chronic obstructive pulmonary disease with (acute) lower respiratory infection; I50.30 Unspecified diastolic (congestive) heart failure; E78.5 Hyperlipidemia, unspecified; E86.0 Dehydration; E87.6 Hypokalemia; I27.20 Pulmonary hypertension, unspecified; M81.0 Age-related osteoporosis without current pathological fracture; G47.00 Insomnia, unspecified; I11.0 Hypertensive heart disease with heart failure; R79.89 Other specified abnormal findings of blood chemistry; Z80.1 Family history of malignant neoplasm of trachea, bronchus and lung; Z68.25 Body mass index [BMI] 25.0-25.9, adult; Z87.440 Personal history of urinary (tract) infections; Z99.81 Dependence on supplemental oxygen; Z90.2 Acquired absence of lung [part of]; Z90.89 Acquired absence of other organs; Z90.49 Acquired absence of other specified parts of digestive tract; Z98.42 Cataract extraction status, left eye; Z98.41 Cataract extraction status, right eye; Z79.82 Long term (current) use of aspirin; Z79.899 Other long term (current) drug therapy; Z88.2 Allergy status to sulfonamides; Z87.891 Personal history of nicotine dependence; Z82.49 Family history of ischemic heart disease and other diseases of the circulatory system; Z80.42 Family history of malignant neoplasm of prostate
CPT/HCPCS: 10040; 10091

== ENCOUNTER → 2019-07-02 | Outpatient (CLI) | payer OTHER, MEDICARE ==
[~2019-07-02] MED LIST changes: +ACIDOPHILUS1 EAC4 PO; +PANTOPRAZOLE SO40 M1 PO
== END ==
LOC: RAD 11:35
DX: J43.9 Emphysema, unspecified (principal); J98.4 Other disorders of lung; M47.814 Spondylosis without myelopathy or radiculopathy, thoracic region; M41.84 Other forms of scoliosis, thoracic region; I70.0 Atherosclerosis of aorta

== ENCOUNTER → 2019-11-26 | Outpatient (CLI) | payer OTHER, MEDICARE | LOC: SJCVCIMAG 07:13 | PROVIDERS: ATTEND Internal Medicine Cardiovascular Disease | DX: I08.3 Combined rheumatic disorders of mitral, aortic and tricuspid valves (principal); I27.20 Pulmonary hypertension, unspecified; J44.9 Chronic obstructive pulmonary disease, unspecified; I10 Essential (primary) hypertension; E78.5 Hyperlipidemia, unspecified; Z99.81 Dependence on supplemental oxygen; Z79.899 Other long term (current) drug therapy; Z82.49 Family history of ischemic heart disease and other diseases of the circulatory system; Z87.891 Personal history of nicotine dependence ==